=== PATIENT | male | born 1970 | race Caucasian/White ===

== ENCOUNTER 2019-01-28 09:49 | Emergency (ER) | payer OTHER ==
[2019-01-28 09:54] VITALS: BP 116/77; PULSE 59; TEMP 98.3; BMI 29.2
--- NOTE | 2019-01-28 10:32 | PDOC ---
History of Present Illness - General Chief Complaint: Injury Stated Complaint: Rt hip pain Time Seen by Provider: 01/28/19 10:02 History Source: Patient Exam Limitations: No Limitations Past History - Past Medical History Allergies/Adverse Reactions: Allergies Allergy/AdvReac Type Severity Reaction Status Date / Time No Known Drug Allergies Allergy Verified 01/28/19 09:54 Home Medications: Ambulatory Orders Cyanocobalamin (Vitamin B-12) [Vitamin B12] 2,500 mcg PO DAILY 08/26/15 Glucosa Xie 2Kcl/Chondroitin Xie [Glucosamine & Chondroitin Cap] 1 each PO DAILY 08/26/15 Multivitamins [Tab-A-Vit -] 1 tab PO DAILY 08/26/15 Loiza-3 Fatty Acids [Loiza-3] 1,000 mg PO DAILY 08/26/15 Ubidecarenone [Co Q-10] 100 mg PO DAILY 08/26/15 Hydrocodone/Acetaminophen [Vicodin 5-300 mg Tablet] 1 - 2 tab PO TID PRN #30 tablet 08/30/15 Anemia: No Asthma: No Cancer: No Cardiac Disorders: No CVA: No COPD: No CHF: No Dementia: No Diabetes: No GI Disorders: No Disorders: No HTN: No Hypercholesterolemia: No Liver Disease: No Seizures: No Thyroid Disease: No Other medical history: Bradycardia - Surgical History Orthopedic Surgery: Yes (LEFT ARTHROSCOPIC SHOULDER) - Suicide/Smoking/Psychosocial Hx Smoking History: Never smoked Have you smoked in the past 12 months: No Information on smoking cessation initiated: No Hx Alcohol Use: No Drug/Substance Use Hx: No Substance Use Type: None Hx Substance Use Treatment: No *Physical Exam - Vital Signs Last Vital Signs Temp Pulse Resp BP Pulse Ox 98.3 F 59 L 18 116/77 99 01/28/19 09:51 01/28/19 09:51 01/28/19 09:51 01/28/19 09:51 01/28/19 09:51 - Physical Exam General Appearance: No: Apparent Distress Comments:: RLE pulses intact 01/28/19 10:30 Gastrointestinal/Abdominal: positive: Normal Bowel Sounds, Soft. negative: Tender, Distended, Guarding, Rebound Male Genitalia: negative: hernia Musculoskeletal: positive: Other (mild TTP along R anterior hip joint, no swelling, no ecchymosis, FROM of R hip, slight pain with movement of R hip). negative: Decreased Range of Motion, Muscle Spasm Extremity: positive: Normal Capillary Refill. negative: Swelling Integumentary: positive: Normal Color. negative: Swelling, Ecchymosis, Bruising Neurologic: positive: Alert, Normal Mood/Affect, Other (normal gait, no limping noted). 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 Denies falling, hearing popping/crack sensation, numbness, weakness, abdominal/groin pain, other complaints R hip xray negative Likely hip strain Patient refused pain meds here 01/28/19 10:31 *DC/Admit/Observation/Transfer Diagnosis at time of Disposition: Hip strain Qualifiers: Encounter type: initial encounter Laterality: right Qualified Code(s): S76.011A - Strain of muscle, fascia and tendon of right hip, initial encounter - Discharge Dispostion Disposition: HOME Condition at time of disposition: Stable Decision to Admit order: No - Referrals - Patient Instructions Printed Discharge Instructions: DI for Muscle Strain Additional Instructions: Thank you for choosing [facility]. It was a pleasure taking care of you. Your xrays were normal. You may take Motrin 600 mg every 6 hours by mouth as needed for mild to moderate pain. Take Motrin with food. Follow-up with your doctor in 2 days Return to the Emergency Department if your symptoms worsen or persist or have other concerning symptoms. - Post Discharge Activity
== END 2019-01-28 10:30 | disposition home or self-care (01) ==
LOC: JERFT 09:49
DX: S76.011A Strain of muscle, fascia and tendon of right hip, initial encounter (principal); X58.XXXA Exposure to other specified factors, initial encounter; Y93.89 Activity, other specified; Y92.410 Unspecified street and highway as the place of occurrence of the external cause; Y99.0 Civilian activity done for income or pay
CPT/HCPCS: 73523-TC-FY; 99281-25

== ENCOUNTER 2020-10-04 08:16 | Emergency (ER) | payer OTHER, BC ==
[2020-10-04 08:26] VITALS: BP 127/90; PULSE 54; TEMP 98.1; BMI 29.9
== END 2020-10-04 09:36 | disposition home or self-care (01) ==
LOC: JER 08:16
DX: M25.511 Pain in right shoulder (principal)
CPT/HCPCS: 73030-TC-RT-FY; 99283-25